=== PATIENT | female | born 1995 | race Caucasian/White ===

== ENCOUNTER 2017-05-19 17:18 | Emergency (ER) | payer BC ==
[~2017-05-19] VITALS: Ht 170.2 cm; Wt 57.2 kg
[2017-05-19] MEDS ORDERED: SEASONIQUE 0.11 EACH (18:17)
[2017-05-19] MEDS ORDERED: KETOROLAC TROMETHAMINE 30 MG/ML VIAL IV STA (18:21)
[2017-05-19 19:13] VITALS: BP 125/89
== END 2017-05-19 19:15 | disposition home or self-care (01) ==
LOC: FSED 17:18
DX: R50.9 Fever, unspecified (principal); R00.0 Tachycardia, unspecified; B34.9 Viral infection, unspecified
CPT/HCPCS: 71046; 80053; 80307; 81003; 84484; 85025; 87400; 93005; 99283; J1885